=== PATIENT | female | born 1990 | race Hispanic/Latino ===

== ENCOUNTER 2017-04-25 05:30 | Inpatient (IN) | payer OTHER ==
[~2017-04-25 05:30] MED LIST: Acetaminophen 500 MG TAB PO PRN; Acetaminophen/Codeine 30-300mg Tablet PO PRN; Ibuprofen 800 MG TAB PO PRN; Lidocaine 1% (PF) 30 ML VIAL SC PRN; Promethazine HCl 25 MG/ML VIAL IM PRN; Zolpidem Tartrate 5 MG TAB PO PRN
[2017-04-25] MEDS: Lactated Ringer's 1,000 ML IV SCH ×4 (06:30→19:07)
[2017-04-25 07:02] VITALS: BMI 47.4
[2017-04-25] MEDS: LR 500 ML/Oxytocin 10 units 500 ML IV SCH (07:22)
[2017-04-25 07:36] LABS: Hematocrit 33.4 % (36.0-47.0); Mean Platelet Volume 9.4 fL (7.4-10.4); Red Blood Cell (RBC) Count 4.13 mill/uL (4.20-5.40); White Blood Cell (WBC) Count 8.3 thou/uL (4.8-10.8)
[2017-04-25] MEDS ORDERED: Bupivacaine 0.25% HCL 30 ML VIAL ONE (10:00)
[2017-04-25] MEDS ORDERED: Fentanyl 4 mcg/Marc 0.1% Cadd 100 ML ONE (11:18)
[2017-04-25] MEDS ORDERED: Ondansetron HCl/PF 4 MG/2 ML Vial IVP PRN (12:14)
[2017-04-25] MEDS ORDERED: Eucerin (Mineral Oil/Petrolatum,White) 30 gm Jar TOP PRN (12:14)
[2017-04-25] MEDS ORDERED: Acetaminophen 325 MG TAB PO PRN (12:14)
[2017-04-25] MEDS ORDERED: Naloxone HCl 0.4 mg/ml Vial IVP PRN ×2 (12:14)
[2017-04-25] MEDS ORDERED: Promethazine HCl 25 MG/ML VIAL IM PRN (12:14)
[2017-04-25] MEDS ORDERED: ePHEDrine/0.9% NaCl/PF SYRINGE 50 mg/10 ml SLOW IVP PRN (12:14)
[2017-04-25] MEDS ORDERED: diphenhydrAMINE 50 MG/ML VIAL IVP PRN (12:14)
[2017-04-25] MEDS ORDERED: Lactated Ringer's 500 ML IV PRN (12:14)
[2017-04-25] MEDS ORDERED: Fentanyl 4mcg/Marcaine 0.1% Cassette 100 ML EPIDURAL SCH (12:15)
[2017-04-25] MEDS ORDERED: Communication Order-Pharmacy FS SCH (12:15)
[2017-04-25] MEDS: Ondansetron HCl/PF 4 MG/2 ML Vial IVP PRN ×2 (13:16→20:00)
[2017-04-25] MEDS: LR / Pitocin 40 units/1000 ml 1,000 ML IV PRN ×2 (18:07→20:16)
[2017-04-25] MEDS: Docusate 100 MG CAP PO PRN (21:34)
[2017-04-26] MEDS: Lactated Ringer's 1,000 ML IV SCH ×3 (06:22→21:32)
[2017-04-26] MEDS: Ibuprofen 800 MG TAB PO SCH ×3 (06:23→21:33)
[2017-04-26] MEDS: Docusate 100 MG CAP PO PRN ×2 (09:08→21:33)
[2017-04-26] MEDS: LR 500 ML/Oxytocin 10 units 500 ML IV SCH (14:43)
[2017-04-27] MEDS: Lactated Ringer's 1,000 ML IV SCH ×2 (06:04→09:26)
[2017-04-27] MEDS: Ibuprofen 800 MG TAB PO SCH ×2 (06:05→14:04)
[2017-04-27 08:22] VITALS: BP 103/56; TEMP 98
[2017-04-27] MEDS: Docusate 100 MG CAP PO PRN (09:26)
[2017-04-27] MEDS: LR 500 ML/Oxytocin 10 units 500 ML IV SCH (09:26)
[2017-04-27] MEDS ORDERED: Adacel (T-DAP) 0.5 ML VIAL IM ONE (21:00)
== END 2017-04-27 14:15 | disposition home or self-care (01) | DRG 775 ==
LOC: L&D 06:36 → 3SW 21:15
PROVIDERS: ADMIT Obstetrics & Gynecology; ATTEND Obstetrics & Gynecology
PROC: 10E0XZZ Delivery of Products of Conception, External Approach (ICD-10-PCS; principal; 2017-04-25)
PROC: 3E0P3VZ Introduction of Hormone into Female Reproductive, Percutaneous Approach (ICD-10-PCS; 2017-04-25)
DX: O80 Encounter for full-term uncomplicated delivery (principal); Z23 Encounter for immunization; Z37.0 Single live birth; Z3A.39 39 weeks gestation of pregnancy
CPT/HCPCS: 85027; 86780; 86850; 86900; 86901; 87340; J2001; J2405; J7120; S0020

== ENCOUNTER 2019-05-31 17:04 | Day surgery (SDC) | payer OTHER ==
[2019-05-31] MEDS ORDERED: Acetaminophen 500 MG TAB PO PRN (17:34)
[2019-05-31] MEDS ORDERED: Iron Sucrose Complex 500 MG in Sodium Chloride 0.9% 250 ML 250 ML IVPB SCH (17:34)
[2019-05-31 17:58] VITALS: BP 98/51; TEMP 98.2; BMI 50.1
--- NOTE | 2019-05-31 18:45 | PDOC.FPROB ---
FMR OB H&P: HPI - History of Present Illness Chief Complaint: iron infusion Indentification: at 35.3WGA here for scheduled iron infusion History of Present Illness: 29 yo at 35.3 WGA here for iron infusion for anemia of . Reports dec meat intake this and non compliance with iron pills thus needing iron infusion. No fatigue, palpitations, dizziness. Endorses FM. Denies VB/VD/ LOF. Primary Care Physician: Dr. Perdue FMR OB H&P: Current - Care : 5 Para: 4 Gestational age: 35.3 - OB Labs Blood type: unknown RH: unknown Antibody Screen: unknown HIV: unknown RPR: unknown HepBsAg: unknown Quad screen: unknown Urine drug screen: not done Gonorrhea: unknown Chlamydia: unknown GBS: unknown FMR OB H&P: History - Past Medical History PMH: Denies - OB History OB History: 4 term SVDs - [employer] History [employer] History: Denies - Surgical History Sx History: Denies - Social History Social History: Denies TAD - Family History Family History: Denies FMR OB H&P: Medications - Current Home Medications: Medication Instructions Recorded Confirmed Type Iron Carb,Gl/FA/B12/C/Docusate 1 tablet PO DAILY 04/25/17 05/31/19 History [[place] 90] Allergies/Adverse Reactions: Allergies Allergy/AdvReac Type Severity Reaction Status Date / Time No Known Allergies Allergy Verified 05/31/19 17:56 FMR OB H&P: ROS - Review of Systems General: denies: fever/chills, weight/appetite/sleep changes ENT: denies: nasal congestion Cardiovascular: denies: palpitation Respiratory: denies: cough, congestion, shortness of breath Gastrointestinal: denies: abdominal pain, indigestion Genitourinary (Female): denies: dysuria, hematuria, vaginal discharge, vaginal bleeding Neurologic: denies: seizures, weakness Integumentary: denies: rash, lesions Endocrine: denies: cold intolerance, heat intolerance Psychological: denies: depression, anxiety FMR OB H&P: Vital Signs - Maternal Vital signs: Vital Signs - First Documented Temp Pulse Resp BP 98.2 F 107 H 107 H 98/51 L 05/31/19 17:27 05/31/19 17:27 05/31/19 17:27 05/31/19 17:27 - Heart Tones Baseline: 140 Variability: moderate Acceleration: present Deceleration: absent Holloway contractions every: none FMR OB H&P: Physical Exam - Physical Exam General: NAD, awake, alert and oriented HEENT: normocephalic and atraumatic, EOMI, MMM, conjunctiva clear, no scleral icterus Neck: FROM, trachea midline Heart: RRR, normal S1/S2 General: CTAB, no respiratory distress, good air movement Abdomen: gravid, non-tender Musculoskeletal: normal gait and station, FROM in all four extremities Skin: good tugor, no jaundice Lymphatic: no unusual bruising or bleeding, no petechia Psychiatric: intact recent and remote memory, good judgement and insight FMR OB H&P: A/P - Problem List (1) with 35 completed weeks gestation Current Visit: Yes Status: Acute Code(s): Z3A.35 - 35 WEEKS GESTATION OF (2) Anemia affecting Current Visit: Yes Status: Acute Code(s): O99.019 - ANEMIA COMPLICATING , UNSPECIFIED TRIMESTER Discussion: Date/Time: 05/31/191844 29 yo here for scheduled iron infusion for anemia of 1. at 35 weeks -FHT: reactive, reassuring -No signs of labor -Follow up care with Dr. Perdue next Sunday 2. Anemia of -Iron infusion today -Continue PO iron This H&P was discussed with Dr. Tesfaye who agree with the above documentation and plan. Addendum - Attending - Attending Attestation Date/Time: 05/31/192054 I personally evaluated the patient and discussed the management with Dr. Schwartz. I agree with the History, Examination, Assessment and Plan documented above.
[2019-06-01] MEDS ORDERED: FLU VACC QS2019-20(6MOS UP)/PF 60 MCG/0.5 ML SYRINGE IM ONE (09:00)
== END 2019-05-31 23:15 | disposition home or self-care (01) ==
LOC: L&D/OP 17:04
PROVIDERS: ATTEND Obstetrics & Gynecology
DX: O99.013 Anemia complicating pregnancy, third trimester (principal); D64.9 Anemia, unspecified; Z3A.35 35 weeks gestation of pregnancy; Z91.14 Patient's other noncompliance with medication regimen
CPT/HCPCS: 96365; 96366; 99283; J1756; J7050

== ENCOUNTER 2019-06-27 05:30 | Inpatient (IN) | payer OTHER ==
[2019-06-27] MEDS ORDERED: Bupivacaine/Epinephrine 0.25% 30 ML VIAL ONE (13:49)
[2019-06-27 23:58] VITALS: BMI 50.2
[2019-06-27] MEDS ORDERED: Misoprostol 200 MCG TAB PR PRN (23:58)
[2019-06-27] MEDS ORDERED: Ibuprofen 800 MG TAB PO PRN (23:58)
[2019-06-27] MEDS ORDERED: hydrALAZINE 20 MG/ML VIAL SLOW IVP PRN (23:58)
[2019-06-27] MEDS ORDERED: Docusate 100 MG CAP PO PRN (23:58)
[2019-06-27] MEDS ORDERED: Butorphanol Tartrate 1 MG/ML VIAL SLOW IVP PRN (23:58)
[2019-06-27] MEDS ORDERED: Promethazine HCl 25 MG/ML VIAL IM PRN (23:58)
[2019-06-27] MEDS ORDERED: Ondansetron PF 4 MG/2 ML Vial IVP PRN (23:58)
[2019-06-27] MEDS ORDERED: Acetaminophen 500 MG TAB PO PRN (23:58)
[2019-06-27] MEDS ORDERED: Diphenoxylate HCl/Atropine Tablet PO PRN ×2 (23:58)
[2019-06-27] MEDS ORDERED: NS / Oxytocin 40 units/1000ml 1,000 ML IV PRN (23:58)
[2019-06-27] MEDS ORDERED: HYDROcodone/Acetaminophen 5/325 mg Tablet PO PRN ×2 (23:58)
[2019-06-27] MEDS ORDERED: NS w/ Oxytocin 10 units 500 ML IV SCH ×2 (23:58)
[2019-06-27] MEDS ORDERED: Lidocaine 1% (PF) 30 ML VIAL SC PRN (23:58)
[2019-06-28 00:30] LABS: Hemoglobin 11.7 g/dL (12.0-16.0); Mean Corpuscular Hemoglobin 27.4 pg (27.0-31.0); Platelet Count 207 thou/uL (130-400); RBC Distribution Width 17.5 % (11.5-14.5); Red Blood Cell (RBC) Count 4.28 mill/uL (4.20-5.40); White Blood Cell (WBC) Count 7.7 thou/uL (4.8-10.8)
[2019-06-28] MEDS: Lactated Ringer's 1,000 ML IV SCH (00:41)
[2019-06-28 01:09] LABS: HBSAg Index 0.23 S/CO (0-0.99); Hep B Surf Ag Non-Reactive S/CO (NonReactive)
[2019-06-28 03:59] LABS: Syphilis Antibody Nonreactive (Nonreactive); Syphilis Antibody Index 0.03 S/CO (<1.00 Non-Reactive)
[2019-06-28] MEDS ORDERED: Fentanyl 4 mcg/Bup 0.1% Cadd 100 ML ONE (12:44)
[2019-06-28] MEDS ORDERED: Promethazine HCl 25 MG/ML VIAL IM PRN (12:59)
[2019-06-28] MEDS ORDERED: Acetaminophen 325 MG TAB PO PRN (12:59)
[2019-06-28] MEDS ORDERED: ePHEDrine/0.9% NaCl/PF SYRINGE 50 mg/10 ml SLOW IVP PRN (12:59)
[2019-06-28] MEDS ORDERED: Lactated Ringer's 500 ML IV PRN (12:59)
[2019-06-28] MEDS ORDERED: Ondansetron PF 4 MG/2 ML Vial IVP PRN (12:59)
[2019-06-28] MEDS ORDERED: Naloxone HCl 0.4 mg/ml Vial IVP PRN ×2 (12:59)
[2019-06-28] MEDS ORDERED: diphenhydrAMINE 50 MG/ML VIAL IVP PRN (12:59)
[2019-06-28] MEDS ORDERED: Communication Order-Pharmacy FS SCH (13:00)
[2019-06-28] MEDS ORDERED: Fentanyl 4 mcg/Bupivacaine 0.1% Cassette 100 ML EPIDURAL SCH (13:00)
[2019-06-28] MEDS ORDERED: NS / Oxytocin 40 units/1000ml 1,000 ML ONE (17:52)
[2019-06-28] MEDS ORDERED: Acetaminophen/Codeine 30-300mg Tablet PO PRN ×2 (22:49)
[2019-06-28] MEDS ORDERED: HYDROcodone/Acetaminophen 5/325 mg Tablet PO PRN ×2 (22:51)
[2019-06-28] MEDS ORDERED: Bisacodyl 10 MG SUPP PR PRN (22:52)
[2019-06-28] MEDS ORDERED: Milk Of Magnesia 30 ML UDCUP PO PRN (22:53)
[2019-06-28] MEDS ORDERED: hydrALAZINE 20 MG/ML VIAL SLOW IVP PRN (22:55)
[2019-06-28] MEDS ORDERED: NS / Oxytocin 40 units/1000ml 1,000 ML IV SCH (23:00)
[2019-06-29 04:22] VITALS: TEMP 98.3
[2019-06-29] MEDS: Lactated Ringer's 1,000 ML IV SCH (07:41)
[2019-06-29] MEDS ORDERED: Ferrous Sulfate 325 MG TAB PO SCH (08:00)
[2019-06-29] MEDS: Adacel (T-DAP) 0.5 ML SYRINGE IM ONE ×2 (08:57→09:43)
[2019-06-29] MEDS ORDERED: Prenatal Vitamin 1 TAB PO SCH (09:00)
[2019-06-29] MEDS ORDERED: Docusate Calcium (SURFAK) 240 MG CAP PO SCH (09:00)
[2019-06-29] MEDS: Ibuprofen 800 MG TAB PO SCH ×2 (09:28)
[2019-06-29 12:07] VITALS: BP 105/50
== END 2019-06-29 16:44 | disposition home or self-care (01) | DRG 807 ==
LOC: L&D 23:15 → 3SW 06-28 17:57
PROVIDERS: ADMIT Obstetrics & Gynecology; ATTEND Obstetrics & Gynecology
PROC: 10E0XZZ Delivery of Products of Conception, External Approach (ICD-10-PCS; principal; 2019-06-27)
DX: O99.02 Anemia complicating childbirth (principal); Z37.0 Single live birth; D64.9 Anemia, unspecified; O76 Abnormality in fetal heart rate and rhythm complicating labor and delivery; Z3A.39 39 weeks gestation of pregnancy
CPT/HCPCS: 51702; 85027; 86780; 86850; 86900; 86901; 87340; 90715; J0595; J2590

== ENCOUNTER 2019-10-26 08:59 | Emergency (ER) | payer OTHER ==
[2019-10-26 17:23] LABS: SARS-CoV-2 MS2 Positive; SARS-CoV-2 N Gene Negative; SARS-CoV-2 S Gene Negative; SARS-CoV-2 orf1ab Negative
== END 2019-10-26 10:23 | disposition home or self-care (01) ==
LOC: ERS 08:59
DX: J02.9 Acute pharyngitis, unspecified (principal); Z20.828 Contact with and (suspected) exposure to other viral communicable diseases
CPT/HCPCS: 87635; 99283; U0003

== ENCOUNTER 2019-12-27 07:41 | Emergency (ER) | payer OTHER ==
[2019-12-28 13:54] LABS: SARS-CoV-2 by NAA DETECTED (NotDetected)
[2019-12-28 13:55] LABS: SARS-CoV-2 MS2 Positive; SARS-CoV-2 N Gene Positive; SARS-CoV-2 S Gene Positive; SARS-CoV-2 orf1ab Positive
== END 2019-12-27 09:19 | disposition home or self-care (01) ==
LOC: ERS 07:41
DX: U07.1 COVID-19 (principal)
CPT/HCPCS: 87635; 99284; U0003